=== PATIENT | female | born 1975 | race Caucasian/White ===

== ENCOUNTER → 2019-09-05 | Day surgery (SDC) | payer OTHER ==
[~2019-09-05] VITALS: Ht 162.6 cm; Wt 81.6 kg
[~2019-09-05] MED LIST: PERCOCET 7.5-31 EAC1 PO; SERTRALINE HCL100 MG PO
--- NOTE | ~2019-09-05 | O ---
[facility] [place] [address] OPERATIVE REPORT Name: OZZY ENGLAND Room #: REG [facility]#: [id number] Admission: 09/05/19 Attend Phys: Josué Fernandez MD Discharge: Date of : 77 Report #: [id number] THIS REPORT FOR: //name// CC: Juancarlos Fernandez DATE OF SERVICE: 09/05/2019 PREOPERATIVE DIAGNOSES: 1. Right hallux valgus. 2. Right second through fifth hammertoe deformities. POSTOPERATIVE DIAGNOSES: 1. Right hallux valgus. 2. Right second through fifth hammertoe deformities. PROCEDURE: 1. Right foot Lapidus type procedure with lapiplasty. 2. Right foot second, third and fourth toe proximal interphalangeal joint arthrodesis. 3. Right foot second, third and fourth toe dorsal capsulotomy and tenotomy. 4. Right foot fifth toe dorsal capsulotomy and tenotomy. SURGEON: Dr. Josué Fernandez. DIRECTOR OF SLEEP: Vee Moe. ANESTHESIA: General. ESTIMATED BLOOD LOSS: Minimal. DRAINS: No drains. TOURNIQUET TIME: 75 minutes. DESCRIPTION OF PROCEDURE: The patient brought to the operating room where she was placed under general anesthesia. Once under adequate general anesthesia, her right lower extremity was prepped and draped in sterile manner. The extremity was elevated, exsanguinated, tourniquet placed 300 mmHg. A dorsal incision over the first TMT joint was then made. This was dissected directly down to the bone and the first TMT joint was then exposed, A sagittal saw was then run through the first TMT joint for release. Similarly, a small osteotome was utilized to release the plantar capsule as well. Once complete, the joint was rotated to note excellent reduction of the sesamoid complex once rotated. The C-clamp was then placed after placing a small stab incision over the second metatarsal. Subsequent to this, the lapiplasty bone cutting block was placed [address] [address] OPERATIVE REPORT Name: OZZY ENGLAND Room #: REG [facility].#: [id number] Admission: 09/05/19 Attend Phys: Josué Fernandez MD Discharge: Date of : 77 Report #: [id number] and the bone cuts were made. The intervening fragments were removed with a rongeur and subsequent reduction of the joint was achieved with the reduction clamp. Fixation was then achieved provisionally with a compression wire and then subsequently also a lag screw placed under fluoroscopic guidance. Excellent alignment was achieved as verified under fluoroscopy. The dorsal and medial locking plates were then placed. Excellent fixation and alignment was achieved as verified under fluoroscopy. A medial incision over the medial eminence was made, dissected down to the joint capsule, which was then incised in line with this incision, which was approximately 2 cm in length. Once exposed, the medial eminence was resected with a sagittal saw blade. The wound was irrigated copiously and the capsular layer was closed with 0 Ethibond suture. Dorsal incisions over the second, third and fourth toes were made over the proximal interphalangeal joints. Dissection was carried down to the joints. Exposure was made of the proximal phalangeal heads and middle phalangeal bases. Proximal phalangeal heads were resected utilizing a sagittal saw and rongeur. The middle phalangeal base was then denuded of any cartilage with a rongeur. Subsequently, the drills and broaches for the Smart Toe implants were utilized and subsequent placement of the Smart Toes were achieved utilizing fluoroscopy to verify fixation and alignment to be satisfactory. A size 19 and then two 16s were used for fixation. A dorsal incision dorsal to the second and third webspace was then made. This was dissected down through soft tissue to the dorsum of the second, third and fourth metatarsophalangeal joint where a dorsal capsulotomy and tenotomy was performed with tenotomy scissors. Excellent alignment was achieved. A small stab incision was made with a Toombs blade to perform a flexor and dorsal tenotomy at the fifth toe to straighten this toe out. Once complete, the wounds were irrigated copiously and closed with 3-0 Vicryl in subcutaneous tissue and 3-0 nylon for the skin. Wounds were dressed with Xeroform, 4 x 4s, and sterile soft compressive dressing was placed. Tourniquet was let down at 1 hour and 15 minutes. Toes were pink and warm with good capillary refill. There were no complications from the procedure. The patient tolerated the procedure well and went to the recovery room without incident. By: [id number] Josué Fernandez MD /melissa
[2019-09-05 11:07] VITALS: BP 132/75
[2019-09-05 14:19] VITALS: BP 132/75
== END | disposition home or self-care (01) ==
LOC: OR 09:39
DX: M20.11 Hallux valgus (acquired), right foot (principal); M20.41 Other hammer toe(s) (acquired), right foot; F41.9 Anxiety disorder, unspecified; Z98.890 Other specified postprocedural states; Z79.899 Other long term (current) drug therapy; Z90.49 Acquired absence of other specified parts of digestive tract; Z88.0 Allergy status to penicillin; Z79.891 Long term (current) use of opiate analgesic
CPT/HCPCS: 50010; 50101; 50386; 50951; 51412; 56524; 56526; 56527; 56528; 57091; 57165; 57180; 62110; 62900; 70005